=== PATIENT | male | born 1950 | race Two or more races ===

== ENCOUNTER 2018-07-02 21:17 | Emergency (ER) | payer MEDICARE, OTHER ==
[~2018-07-02] VITALS: Ht 177.8 cm; Wt 88.5 kg
[2018-07-02 21:20] VITALS: BP 124/74
== END 2018-07-03 00:25 | disposition left against medical advice (07) ==
LOC: ER 21:17 → EDBD 21:17 → ER 07-03 00:25
DX: F10.129 Alcohol abuse with intoxication, unspecified (principal); Z53.29 Procedure and treatment not carried out because of patient's decision for other reasons
CPT/HCPCS: 82962

== ENCOUNTER 2023-04-20 14:34 | Emergency (ER) | payer OTHER ==
[~2023-04-20] VITALS: Ht 160 cm; Wt 70.0 kg
[2023-04-20 16:30] LABS: Basophils # (auto) 0 10 ^3/uL (0-0.2); Basophils % (auto) 0.4 % (0.0-2.0); Eosinophils # (auto) 0.1 10 ^3/uL (0-0.8); Eosinophils % (auto) 0.6 % (0.0-7.0); Hematocrit 35.9 % (41.0-53.0); Hemoglobin 11.9 g/dL (13.5-17.5); Lymphocytes # (auto) 2.1 10 ^3/uL (0.4-5.4); Lymphocytes % (auto) 17.4 % (10.0-50.0); Mean Corpuscular Hemoglobin 29.9 pg (28.0-32.0); Mean Corpuscular Hgb Conc. 33.1 g/dL (32.0-36.0); Mean Corpuscular Volume 90.4 fL (80.0-100.0); Monocytes # (auto) 0.9 10 ^3/uL (0-1.3); Monocytes % (auto) 7.7 % (0.0-12.0); Neutrophils # (auto) 8.8 10 ^3/uL (1.6-8.6); Neutrophils % (auto) 73.9 % (37.0-80.0); Red Blood Cells 3.97 10^6/uL (4.5-5.90); Red Cell Distribution Width 14.3 % (11.8-14.3); White Blood Cell 11.9 10^3/uL (4.4-10.8)
[2023-04-20 16:55] LABS: Alanine Aminotransferase 38 U/L (7-40); Albumin 4.5 g/dL (3.2-4.8); Alkaline Phosphatase 184 U/L (46-116); Anion Gap 11 (5-15); Aspartate Aminotransferase 33 U/L (13-40); BUN/Creatinine Ratio 18.8 (10.0-20.0); Bilirubin, Total 0.5 mg/dL (0.2-1.0); Blood Urea Nitrogen 26 mg/dL (9-23); Calcium 9.5 mg/dL (8.5-10.1); Carbon Dioxide 22 mmol/L (20-30); Chloride 109 mmol/L (98-107); Glucose 87 mg/dL (74-106); Sodium 142 mmol/L (136-145); Total Protein 8.1 g/dL (5.7-8.2)
[2023-04-20 18:47] LABS: Urine Bacteria NONE SEEN /hpf (None Seen); Urine Blood Negative /uL (Negative); Urine Clarity Clear (Clear); Urine Color Colorless (Yellow); Urine Protein, UAD TRACE (Negative); Urine Specific Gravity 1.012 (1.001-1.035); Urine Urobilinogen Normal (Negative); Urine WBC 14 /hpf (0 - 3); Urine pH 5.5 (5.0-8.0)
[2023-04-20] MEDS ORDERED: PIPERACILLIN-TAZO 4.5GM 100 ML IV ONE (19:45)
[2023-04-20] MEDS ORDERED: ACET-1304 PO (19:54)
[2023-04-20] MEDS ORDERED: CLIN300C70 PO (19:54)
[2023-04-20] MEDS ORDERED: DOXY-286 PO (19:54)
[2023-04-20] MEDS ORDERED: SODIUM CHLORIDE 0.9% 1,000 ML IV ONE (20:00)
[2023-04-20 21:45] VITALS: BP 151/94; PULSE 98; RESP 18; TEMP 98.2; O2SAT 100
[2023-04-20] MEDS ORDERED: ACETAMINOPHEN 500 MG TAB PO ONE (22:15)
== END 2023-04-20 22:35 | disposition home or self-care (01) ==
LOC: ER 14:34
DX: L03.115 Cellulitis of right lower limb (principal); L03.116 Cellulitis of left lower limb; R79.89 Other specified abnormal findings of blood chemistry; N39.0 Urinary tract infection, site not specified; I10 Essential (primary) hypertension; E11.9 Type 2 diabetes mellitus without complications; Z79.2 Long term (current) use of antibiotics; Z79.899 Other long term (current) drug therapy
CPT/HCPCS: 36415; 80053; 81001; 82962; 85025; 87040; 93970; 96365; 96366; 99285; J2543; J7030